=== PATIENT | female | born 1960 | race Caucasian/White ===

== ENCOUNTER 2024-12-23 21:00 | Emergency (ER) | payer BC, SELFPAY ==
[2024-12-23 21:02] VITALS: BP 120/77
[2024-12-23 21:16] LABS: Hematocrit 43.3 % (37.0-47.0); Hemoglobin 13.9 g/dL (12.0-16.0); Mean Corp Hgb Conc. 32.1 g/dL (33.0-37.0); Mean Corpuscular Volume 92.3 fL (81.0-99.0); Nucleated Red Blood Cells % 0 %; Platelet Count 349 10^3/uL (130-400); Red Cell Dist. Width 15.7 % (11.5-14.5)
[2024-12-23 21:39] LABS: ALT (SGPT) 32 U/L (0-35); AST (SGOT) 34 U/L (14-36); Albumin 4.9 g/dl (3.5-5.0); Alkaline Phosphatase 88 U/L (38-126); Blood Urea Nitrogen 22 mg/dl (7-17); Calcium 10.1 mg/dl (8.4-10.2); Carbon Dioxide 27 mmol/L (22-30); Chloride 100 mmol/L (98-107); Glucose 109 mg/dl (70-99); Lipase 141 U/L (23-300); Potassium 4.5 mmol/L (3.5-5.1); Sodium 136 mmol/L (135-145); Total Protein 7.2 g/dl (6.3-8.2); eGFR > 60.00
--- NOTE | 2024-12-23 23:35 | ED.GENMED ---
History of Present Illness
General
Chief Complaint: Bowel Problem
Source: patient
Exam Limitations: none
Time Seen by Provider: 12/23/24 23:20
Nursing documentation reviewed up to this point in time: agreed with
History of Present Illness
History of Present Illness:
64-year-old female with a past medical history of migraines, asthma, hypertension, hyperlipidemia, diabetes on oral agent presents emergency department today with concerns of constipation. She reports that her stools have been hard to pass and have
been small and pebble-like. She also notes a sensation of blockage in the anal region. Patient reports that 'I feel stuck before it even comes out '. Patient also reports that a recent attempt to defecate, she passed a small amount of liquid
stool but unable to pass any solid matter. Patient describes experience fullness in the abdomen but denies pain. She also notes that during episode of straining she did notice some small specks of blood but denies any dark tarry stools. She
denies any upper abdominal pain. Denies any hematemesis. She denies any recent low back pain, any saddle paresthesias. She states that she has had occasional constipation in the past that relieved with MiraLAX or Colace but this has not improved.
She is concerned she may have a hemorrhoid. She denies any vomiting. She states that she has been eating without any difficulties.
Past History
Past History
ED Past Medical History: Asthma and Cancer
Social History
Tobacco: Non-smoker
Review of Systems
Review of Systems
All Other Systems: ROS reviewed and negative except as documented in HPI and ROS
Phy Exam
Physical Exam
Physical Exam:
General: Patient is well appearing and in no acute distress; non-toxic
Skin: Warm and dry, no rashes or lesions
Head: Normocephalic, atraumatic
Eyes: Sclera non-icteric. EOMs intact.
Cardiac: Regular rate and rhythm, no murmurs
Peripheral Vascular: No lower extremity swelling or edema
Pulm: Normal respiratory effort
Abdomen: No abdominal tenderness to palpation, abdomen nondistended, no palpable mass
Genitourinary: No hemorrhoids noted, no active rectal bleeding, fecal impaction noted in rectal vault, impaction and stool removed manually
Neuro: CN II-XII intact, no focal neurologic deficits.
Psychiatric: Appropriate mood and affect.
Course
Orders/Labs/Results
Orders:
Orders
12/23/24 21:11
Complete Blood Count/With Diff Urgent
Comprehensive Metabolic Panel Urgent
Lipase Urgent
12/23/24 23:45
CR Obstruct Series W/pa Chest Urgent
Comment:
Reason For Exam: constipation
12/24/24 00:19
Phosphate Enema [Fleet Phosphate Enema-Adult] 135 ml RECTAL NOW STA
12/24/24 01:03
Magnesium Citrate [Citroma] 300 ml PO ONCE ONE
Abnormal Lab Results
12/23/24
21:11
MCHC 32.1 L g/dL
(33.0-37.0)
RDW 15.7 H %
(11.5-14.5)
Lymphocytes % 16.2 L %
(20.5-51.1)
BUN 22 H mg/dl
(7-17)
Glucose 109 H mg/dl
(70-99)
12/23/24 21:11
12/23/24 21:11
Vital Signs
Initial and Last Documented VS:
Initial Vital Signs
Temp Pulse Resp BP Pulse Ox
98.7 F 73 18 120/77 99
12/23/24 21:02 12/23/24 21:02 12/23/24 21:02 12/23/24 21:02 12/23/24 21:02
Last Documented Vital Signs
Temp Pulse Resp BP Pulse Ox
98.7 F 73 18 120/77 99
12/23/24 21:02 12/23/24 21:02 12/23/24 21:02 12/23/24 21:02 12/23/24 23:36
MDM/Problems Addressed
Differential Diagnosis Includes:
Differentials include constipation, obstruction, gastroenteritis, fecal impaction, hemorrhoidal thrombosis, rectal prolapse
MDM/Problems Addressed:
64-year-old female presents emergency department today with concerns of constipation. This been going on for 1 week. She has passed hard small stools and feels like something is stuck in her rectum. She is no abdominal pain just some sensation of
fullness. She went for x-ray which shows moderate stool burden but no evidence of obstruction. Her blood work is unremarkable. On exam, she has no anal or rectal lesions. No active bleeding. She does have a fecal impaction noted. Impaction was
removed. Patient was given a enema and she did pass a large bowel movement. Patient reports still some fullness in her abdomen and is concerned that everything is not fully out. Patient was given mag citrate to go home with discussed that she can
use this in a few days if she still feels full and can try using half the bottle tomorrow if she still has discomfort. Patient expressed understanding. Patient will follow-up with PCP. Patient stable for discharge.
*Pulse Oximetry
SaO2: 99
Patient hypoxic: no
*Critical Care Note
Total Time (30-74mins, 75-104mins- exclusive of procedures): Not Applicable
ED Attending Note
-
Portions of this chart may have been created with voice recognition software.� Occasional wrong word or��sound alike� substitutions may have occurred due to the inherent limitations of voice recognition software.
Discharge Plan
Departure
Patient Disposition: Home (Routine Discharge)
Date of Disposition: 12/24/24
Time of Disposition: 01:07
Patient with high blood pressure during this ER visit?: No
Condition: Good
Discharge Problem:
Constipation, Fecal impaction
Instructions: Constipation, Adult (DC), Fecal Impaction (DC)
Prescriptions:
No Action
metformin 500 MG tablet
1,000 mg PO BID
sertraline 100 MG tablet
100 mg PO DAILY
glimepiride 1 MG tablet
1 mg PO DAILY
ropinirole 2 MG tablet
2 mg PO QID
gabapentin 100 MG capsule
100 mg PO TID
levothyroxine 112 MCG tablet
112 mcg PO MOTUWETH
Jardiance 25 MG tablet
25 mg PO DAILY
multivitamin [One Daily Essential] 1 EACH tablet
1 ea PO DAILY
fluticasone propionate 1 SPRAY spray,suspension
1 spray intranasal PRN PRN (Reason: nasal congestion)
melatonin 1 MG tablet
1 mg PO HS PRN (Reason: Sleep)
magnesium oxide 400 MG capsule
400 mg PO DAILY PRN (Reason: Supplement)
prednisone 20 mg Tablet
20 mg PO PRN PRN (Reason: unknown)
exemestane 25 mg Tablet
25 mg PO QPM
repaglinide 0.5 mg Tablet
0.5 mg PO PRN PRN (Reason: elevated blood sugar)
Rx Instructions:
0.5mg - 1 mg depending on blood sugar
montelukast 10 mg Tablet
10 mg PO DAILY
ibuprofen 600 mg Tablet
600 mg PO Q6H PRN (Reason: discomfort)
levothyroxine 112 mcg Tablet
56 mcg PO SANABRIA
rosuvastatin 10 mg Tablet
10 mg PO DAILY
metaxalone
800 mg PO PRN PRN (Reason: back pain)
naproxen 500 mg Tablet
500 mg PO BID PRN (Reason: pain)
olmesartan 20 mg Tablet
20 mg PO DAILY
Referrals:
Leo Bolden MD [Family Provider, Family Practice]
Activity Restrictions/Additional Instructions:
You have been given magnesium citrate. You can take the whole bottle as a single dose or you can take half the bottle, wait a few hours, take the second dose.
Please continue to monitor your symptoms. Please follow-up with your primary care provider.
PLEASE RETURN TO THE ER SHOULD YOU DEVELOP LIGHTHEADEDNESS, DIZZINESS, PERSISTENT RECTAL BLEEDING, DARK TARRY STOOLS, ABDOMINAL PAIN, FEVERS OR CHILLS, CHEST PAIN, SHORTNESS OF BREATH, OR ANY OTHER SIGNS OR SYMPTOMS WORRISOME TO YOU.
Interventions
Interventions:
*Risk Screen - Suicide Last Done: 12/23/24 21:06
*General Assessment Last Done: 12/23/24 21:06
*Neglect/Abuse Screening Last Done: 12/23/24 21:06
*ED- Fall Risk Assessment Last Done: 12/23/24 21:06
*ED COVID-19 Vaccine History Last Done: 12/23/24 21:06
*Nursing Disposition Last Done: 12/24/24 01:24
CE-Dwvjcm-Gunzzzwsqx Assessment Last Done: 12/24/24 00:30
Discharge Date and Time
Discharge Date/Time: 12/24/24 01:32
Print Language: AMHARIC
[2024-12-24] MEDS: FLEET PHOSPHATE ENEMA-ADULT 135 ML RECTAL (00:36)
[2024-12-24] MEDS: CITROMA 300 ML PO (01:16)
== END 2024-12-24 01:32 | disposition home or self-care (01) ==
LOC: EMR 21:00
PROVIDERS: Emergency Medicine; EMERGENCY PHYSICIAN Student in an Organized Health Care Education/Training Program; FAMILY PHYSICIAN Family Medicine
DX: K59.00 Constipation, unspecified (principal); J45.909 Unspecified asthma, uncomplicated; I10 Essential (primary) hypertension; E78.5 Hyperlipidemia, unspecified; E11.9 Type 2 diabetes mellitus without complications; Z79.84 Long term (current) use of oral hypoglycemic drugs
CPT/HCPCS: 99284; 74022; 80053; 83690; 85025